=== PATIENT | male | born 1965 | race Caucasian/White ===

== ENCOUNTER → 2016-08-23 | Outpatient (CLI) | payer OTHER ==
--- NOTE | 2016-08-24 20:15 | MR ---
EXAMINATION TYPE: MR chrissine/bhanu wo con DATE OF EXAM: 08/23/2016 8:08 AM COMPARISON: NONE HISTORY: cervicalgia, lumbago CONTRAST: 0 mL intravenous MultiHance. TECHNIQUE: Multiplanar, multisequence images of the lumbar spine were acquired. FINDINGS: Cord terminates at the L1 level. L5-S1: There is left lateral disc bulge. This has exiting nerve root contact. Correlate with left S1 radicular symptoms. No spinal canal stenosis is present. Neural foramen appears narrowed on the left normal on the right. Facets are unremarkable. Disc desiccation is present.. L4-L5: No focal disc herniation or significant disc bulge is evident. No spinal canal stenosis. No foraminal stenosis. Mild disc desiccation is present.. L3-L4: Broad-based disc bulge is present. No spinal canal stenosis or neural foraminal stenosis is pr esent No spinal canal stenosis. No foraminal stenosis. Disc desiccation is present. L2-L3: No significant disc bulge or disc herniation. No spinal canal stenosis. No foraminal stenosi s. Mild disc desiccation is present.. L1-L2: No significant disc bulge or disc herniation. No spinal canal stenosis. No foraminal stenosi s. Neural foramen are patent.. T12-L1: No significant disc bulge or disc herniation. No spinal canal stenosis. No foraminal stenos is. Neural foramen are patent.. IMPRESSION: 1. Left lateral disc bulge L5-S1. Correlate with left S1 radicular symptoms. 2. Minimal disc bulge L3-4 with anterior thecal sac flattening. EXAMINATION TYPE: MR honey/bhanu wo con DATE OF EXAM: 08/23/2016 8:08 AM COMPARISON: NONE HISTORY: cervicalgia, lumbago CONTRAST: Performed utilizing 0 mL intravenous MultiHance gadolinium contrast. TECHNIQUE: Multiplanar multiecho imaging on a 3.0 Marcy magnet is performed through the cervical spin e. FINDINGS: The craniovertebral junction is normal. Vertebral body alignment is normal. C7-T1: There is broad-based central disc bulge with mild anterior thecal sac compression. No cord co ntact is evident.. No spinal canal stenosis or neural foraminal stenosis is present. C6-7: Mild central disc bulge is present with anterior thecal sac compression. No cord contact is martha dent. No spinal canal stenosis or neural foraminal stenosis is present. C5-6: Central disc bulge is present with mild anterior thecal sac compression. There is increased sig nal on T2-weighted sequences suggesting an annular tear. No spinal canal stenosis or neural foraminal stenosis present. No cord deformity is present.. C4-5: No focal disc herniation or significant disc bulge is evident. No spinal canal stenosis or yamila ral foraminal stenosis is present.Uncovertebral joint hypertrophy is present with moderate bilateral foraminal narrowing C3-4: Mild disc bulge has anterior thecal sac compression. No spinal canal stenosis present. Left for aminal narrowing is present.. C2-3: Mild left disc bulge is present with mild left paracentral anterior thecal sac compression. No cord contact is evident. No spinal canal stenosis or neural foraminal stenosis is present. IMPRESSIONS: 1. Disc bulging with mild anterior thecal sac compression present C5-6 C6-7 and C7-T1. 2. Small annular tear may be present C5-6.
== END ==
LOC: RADMRIMAIN 07:19
PROVIDERS: ATTEND Psychiatry & Neurology Neurology
DX: M51.27 Other intervertebral disc displacement, lumbosacral region (principal); M50.222 Other cervical disc displacement at C5-C6 level
CPT/HCPCS: 72141; 72148

== ENCOUNTER 2017-03-15 20:09 | Emergency (ER) | payer OTHER ==
[2017-03-15] MEDS ORDERED: HYDROcodone/APAP 5-325MG 1 EACH TAB PO STA (21:23)
--- NOTE | 2017-03-15 23:15 | CT ---
History: Reason: Pain Exam: CT HEAD Without Contrast axial noncontrast images through the brain with multiplanar reformatted images Technique more: CTDI is 60.30 mGy and DLP is 1217.10 mGy-cm. Technique more: This CT exam was performed using one or more of the following dose reduction techniques: automated exposure control, adjustment of the mA and/or kV according to patient size, and/or use of iterative reconstruction technique. Comparison: None available FINDINGS: No intracranial hemorrhage, mass effect or CT evidence of acute infarct. The jose-white differentiation appears preserved. The ventricles are within limits and midline. Mild mucosal thickening left ethmoid air cells. The mastoid and orbits appear within limits. Posterior scalp soft tissue injury, possible aspiration. No calvarial fracture. IMPRESSION: No intracranial hemorrhage, mass effect or CT evidence of acute infarct. Posterior scalp soft tissue injury, possible aspiration. No calvarial fracture. Exam: CT C SPINE Without Contrast axial noncontrast images through the cervical spine with multiplanar reformatted images Technique more: CTDI is 20.10 mGy and DLP is 410.70 mGy-cm. Technique more: This CT exam was performed using one or more of the following dose reduction techniques: automated exposure control, adjustment of the mA and/or kV according to patient size, and/or use of iterative reconstruction technique. Comparison: None available FINDINGS: No fracture or malalignment. Straightening may represent position or spasm. No evidence of prevertebral swelling. Multilevel spondylosis/discogenic change. Bilateral C4-5 foraminal stenosis and left-sided C3-4 foraminal stenosis. Visualized lung apices are clear. IMPRESSION: No fracture or malalignment. Straightening may represent position or spasm. No evidence of prevertebral swelling. Multilevel spondylosis/discogenic change. Bilateral C4-5 foraminal stenosis and left-sided C3-4 foraminal stenosis.
--- NOTE | 2017-03-15 23:48 | ED ---
Fall HPI - General Chief Complaint: Fall Stated Complaint: Fall. 7 feet Time Seen by Provider: 03/15/17 20:42 Source: patient Mode of arrival: ambulatory - History of Present Illness Initial Comments: 52-year-old male patient presents to the emergency department today for evaluation after falling from a ladder. Patient states that his feet were 3 feet off the ground up a ladder when he fell backwards striking his head on cement. He states that follow occurred approximately 30 minutes prior to arrival. Patient states he is unsure whether or not he passed out. states that he was somewhat dazed and unable to ablate after the fall. She was eventually able to get him up into the car and brought him here for evaluation. Currently patient is resting in bed and is able to answer questions without difficulty. He is complaining of a headache and pain to the posterior scalp. He denies any blurred or double vision. Denies any nausea or vomiting. Denies any neck or back pain. He is complaining of some minor right elbow discomfort. He denies any difficulty with range of motion, numbness, or tingling to the arm. Patient denies any chest pain, shortness of breath, dizziness, weakness, abdominal pain, or difficulties with bowel movements or urination. - Related Data Home Medications Medication Instructions Recorded Confirmed Calcium Carbonate [Calcium] 600 mg PO DAILY 03/15/17 03/15/17 Levothyroxine Sodium [Synthroid] 75 mcg PO DAILY 03/15/17 03/15/17 Multivitamins, Thera [Multivitamin 1 tab PO DAILY 03/15/17 03/15/17 (formulary)] Vit C/E/Zn/Coppr/Lutein/Zeaxan 1 cap PO BID 03/15/17 03/15/17 [Preservision Areds 2 Softgel] Previous Rx's Medication Instructions Recorded Amoxic-Pot Clav 875-125Mg 1 tab PO Q12HR #20 tablet 03/15/17 [Augmentin 875-125] Allergies Allergy/AdvReac Type Severity Reaction Status Date / Time No Known Allergies Allergy Verified 03/15/17 20:59 Review of Systems ROS Statement: Those systems with pertinent positive or pertinent negative responses have been documented in the HPI. ROS Other: All systems not noted in ROS Statement are negative. Past Medical History Past Medical History: GERD/Reflux, Thyroid Disorder History of Any Multi-Drug Resistant Organisms: None Reported Past Surgical History: Orthopedic Surgery Additional Past Surgical History / Comment(s): rt wrist sx. bilat rotator cuff sx. colonoscopy Past Anesthesia/Blood Transfusion Reactions: Motion Sickness Past Psychological History: No Psychological Hx Reported Smoking Status: Never smoker Past Alcohol Use History: Occasional Past Drug Use History: None Reported - Past Family History Brother(s) Family Medical History: Deep Vein Thrombosis (DVT) General Exam Limitations: no limitations General appearance: alert, in no apparent distress, other (This is a well- developed, well-nourished adult male patient in no acute distress. Vital signs upon presentation are temperature 98.8F, pulse 85, respirations 20, blood pressure 198/91, pulse ox 97% on room air.) Head exam: Present: normocephalic, other (Patient has a 0.5 cm laceration to the central posterior scalp.) Eye exam: Present: normal appearance, PERRL, EOMI. Absent: scleral icterus, conjunctival injection, nystagmus, periorbital swelling ENT exam: Present: normal exam, normal oropharynx, mucous membranes moist, TM's normal bilaterally Neck exam: Present: normal inspection. Absent: tenderness, meningismus, full ROM (C-collar in place upon examination), lymphadenopathy Respiratory exam: Present: normal lung sounds bilaterally. Absent: respiratory distress, wheezes, rales, rhonchi, stridor Cardiovascular Exam: Present: regular rate, normal rhythm, normal heart sounds. Absent: systolic murmur, diastolic murmur, rubs, gallop, clicks GI/Abdominal exam: Present: soft, normal bowel sounds. Absent: distended, tenderness, guarding, rebound, rigid Extremities exam: Present: full ROM, normal capillary refill, other (Does have an abrasion to the right posterior upper arm. She has full range of motion to the right elbow. Skin is otherwise pink, warm, and dry with cap refill less than 3 seconds. We'll pulses 2+ and equal bilaterally. Patient has no point tenderness to the medial or lateral epicondyles or the olecranon process. He has full range of motion of the elbow without pain or limitation. Patient has no hip tenderness or pain with compression of the pelvis.). Absent: tenderness , pedal edema, joint swelling, calf tenderness Back exam: Present: normal inspection, other (Nontender, no step-off, no deformity to firm midline palpation of the thoracic and lumbar vertebrae. Full range of motion without pain or limitation.). Absent: tenderness, vertebral tenderness Neurological exam: Present: alert, oriented X3, CN II-XII intact, other (Patient 's speech is fluid, he is alert and acutely responsive.) Psychiatric exam: Present: normal affect, normal mood Skin exam: Present: warm, dry, intact, normal color. Absent: rash Course Vital Signs 03/15/17 03/16/17 20:25 00:12 Temperature 98.8 F 98.1 F Pulse Rate 85 77 Respiratory 20 19 Rate Blood Pressure 198/91 136/82 O2 Sat by Pulse 97 97 Oximetry Medical Decision Making - Medical Decision Making 52-year-old male patient presented for evaluation after falling from a ladder and striking his head on the ground. Physical examination did reveal 0.5 cm laceration to the posterior scalp. CT of the brain and C-spine was obtained and showed no acute abnormalities. When c-collar was removed patient did have full range of motion without pain or limitation to the neck. Laceration was small, bleeding controlled, and did not require repair. Patient was neurologically intact during stay. Headache did improve with medication given here in the department. Patient will be discharged home today with instructions to follow-up with his primary care physician for recheck in 1-2 days. Incidental finding of the CT of the brain did show mucosal thickening in the ethmoid air cells, patient did report frontal headaches for the last 2 weeks. We will treat him for acute sinusitis with Augmentin. He is instructed to return here immediately for any worsening signs or symptoms of head injury, patient was educated regarding this. He is instructed to return here for any other new, worsening, or concerning symptoms. He verbalizes understanding and agrees with this plan. - Radiology Data Radiology results: report reviewed, image reviewed CT of the head without contrast, report was read in its entirety, impression by Dr. Chowdhury shows no acute intracranial hemorrhage, mass effect, or CT evidence of acute infarct. Posterior scalp soft tissue injury, possible laceration. No calvarial fracture. CT of the cervical spine report reviewed in its entirety, impression by Dr. Chowdhury shows no fracture or malalignment. Straightening may represent position or spasm. No evidence of prevertebral swelling. Multilevel spondylosis/discogenic change. Bilateral C4 to 5 for animal stenosis with left- sided C3 to 4 foraminal stenosis. Disposition Clinical Impression: Head injury, Concussion, Contusion of right elbow, Ethmoid sinusitis Disposition: HOME SELF-CARE Condition: Good Instructions: Laceration (ED), Head Injury (ED) Additional Instructions: Monitor for signs or symptoms of worsening head injury as discussed. Keep wound clean and dry. Monitor for signs or symptoms of infection including but not limited to redness, swelling, drainage of pus, fever, or chills. Follow-up with the primary care physician for recheck in 1-2 days. Return here immediately for any new, worsening, or concerning symptoms. Prescriptions: Amoxic-Pot Clav 875-125Mg [Augmentin 875-125] 1 tab PO Q12HR #20 tablet Referrals: Murphy Phelps DO [Primary Care Provider] - 1-2 days Time of Disposition: 23:48
[2017-03-16 00:13] VITALS: BP 136/82; PULSE 77; RESP 19; TEMP 98.1
== END 2017-03-16 00:13 | disposition home or self-care (01) ==
LOC: EC 20:09
DX: S06.0X0A Concussion without loss of consciousness, initial encounter (principal); S01.01XA Laceration without foreign body of scalp, initial encounter; S50.01XA Contusion of right elbow, initial encounter; J01.20 Acute ethmoidal sinusitis, unspecified; E07.9 Disorder of thyroid, unspecified; Y92.89 Other specified places as the place of occurrence of the external cause
CPT/HCPCS: 70450; 72125; 99284

== ENCOUNTER → 2018-09-30 | Outpatient (CLI) | payer OTHER ==
--- NOTE | 2018-09-30 13:12 | CONS ---
CONSULTATION DATE OF SERVICE: 09/30/2018 A 53-year-old gentleman who has been evaluated in the Sleep Center for possible obstructive sleep apnea-hypopnea syndrome. HISTORY OF PRESENT ILLNESS/SLEEP-WAKE EVALUATION: During the working days, patient usually goes to bed around 9:30 p.m. and then he wakes up around 4:30 am. Sometimes he is able to fall asleep after this awakening, sometimes not, but he is normally waking up on working days 4:30 am. On working days, he Dysuria is [id number] weight so his normal waking up on working days for 30 a.m. On weekend, he usually goes to bed around 11 pm. sleeps until 3 am, wakes up and then again sometimes falling asleep out and sometimes not, and his awakening time ended on weekends about 7:00 am he does snore at night. According to , he may have episodes of snorting and choking during the sleep. He wakes up from sleep about 3 times with up to 2 episodes of nocturia. No history of hypnagogic hallucinations, sleep paralysis or cataplexy. In the morning, patient wakes up tired falling asleep during the day, has problems with memory, concentration, anxiety [place] Sleepiness Scale increased to 15. PAST MEDICAL HISTORY: 1. Positive for hypothyroidism, low level of testosterone. SURGICAL HISTORY: Right wrist surgery 2003, left shoulder 2007, right shoulder 2011. MEDICATIONS: Levothyroxine, testosterone, melatonin on occasional basis at 8:30 pm. SOCIAL HISTORY: Negative for smoking. Alcohol consumption up to 3-4 glasses per week. FAMILY HISTORY: Hypertension, heart problems, emphysema, snoring, thyroid problems. REVIEW OF SYSTEMS: Awakenings from sleep, tiredness and sleepiness during the day. PHYSICAL EXAM: gentleman without distress. BP 126/78, HR 68, RR 16, height 70.5 inches, weight 199 pounds. Body mass index 27.4, temperature 97.7, oxygen saturation 95%. OROPHARYNX: Low position of soft palate. Mallampati 3. Wide pillars. NECK: Wide neck 16-1/4 inch in circumference, restriction of nasal breathing on the right side. LUNGS Clear to percussion and to auscultation. Good air exchange. No wheezing or rhonchi. HEART S1, S2 regular. No murmurs, gallops, or rubs. ABDOMEN Soft and nontender. Bowel sounds are present. No organomegaly appreciated. EXTREMITIES No clubbing or cyanosis. GRAVITY METER OBSERVER Awake, alert, and oriented X3. Cranial nerves 2 to 7 intact. There is no fasciculation or atrophy. noted. No focal deficits observed. IMPRESSION: 1. Snoring, witnessed episodes of choking and snorting during the sleep. Awakenings from sleep with dry mouth and nocturia. Low position of soft palate. Restriction of nasal breathing. Wide neck, sleepiness, obstructive sleep apnea-hypopnea syndrome. 2. Sleepiness, Keene Sleepiness Scale significantly increased to 15. Patient feels tired and sleepy during the day, but usually does not take any naps. 3. Awakenings at 3 am with difficulties to fall asleep again. 4. Hypothyroidism. 5. Low level of testosterone while on testosterone replacement. 6. Status post right knee surgery in 2003. 7. Status post left surgery in 2007. 8. Status post right shoulder surgery surgery 2011. PLAN: 1. Polysomnography for evaluation of patient's breathing during sleep. 2. CPAP/BiPAP titration if sleep study confirms obstructive sleep apnea-hypopnea syndrome. 3. Preferable position during sleep on the side. 4. No driving if patient feels any sleepiness. 5. I will see patient for follow up visit to explain results of testing and following plan. Thank you very much for referring this patient for consultation. Sincerely, Renny Jones MD, PhD, FAASM Diplomat of [place] [employer] [place] [employer] Secondary Set [employer] [facility] [place] MMODL / YOUNGN: [id number] /
== END | disposition home or self-care (01) ==
LOC: SLEEP 11:37
PROVIDERS: ATTEND Internal Medicine
DX: G47.33 Obstructive sleep apnea (adult) (pediatric) (principal); R35.1 Nocturia; E03.9 Hypothyroidism, unspecified; E29.1 Testicular hypofunction; Z79.890 Hormone replacement therapy; Z98.890 Other specified postprocedural states; Z79.899 Other long term (current) drug therapy
CPT/HCPCS: 99211

== ENCOUNTER → 2018-10-28 | Outpatient (CLI) | payer OTHER ==
--- NOTE | 2018-10-28 19:56 | PN ---
PROGRESS NOTE DATE OF SERVICE: 10/29/2018 53-year-old gentleman who has been followed in Sleep Center to discuss results of the sleep study and following plan. I discussed results of sleep study with the patient in detail. No respiratory abnormalities have been documented. Normal oxygenation during the sleep. Patient continued to have symptoms of significant excessive daytime sleepiness. Today his [place] Sleepiness Scale is in extremely high range of 17. MEDICATIONS: Levothyroxine, testosterone, melatonin. PHYSICAL EXAM: Patient in no distress. BP 134/82, HR 79, temp 98.2, oxygen saturation at room air 96%. HEENT PERRLA, EOMI, evaluation of oropharynx showed tongue protrudes midline. Neck Supple, no JVD. Thyroid is not palpable. LUNGS Clear to percussion and to auscultation. Good air exchange. No wheezing or rhonchi. HEART S1, S2 regular. No murmurs, gallops, or rubs. ABDOMEN Soft and nontender. Bowel sounds are present. No organomegaly appreciated. EXTREMITIES No clubbing or cyanosis. BULK SEALER OPERATOR Awake, alert, and oriented X3. Cranial nerves 2 to 7 intact. There is no fasciculation or atrophy. noted. No focal deficits observed. IMPRESSION: 1. No significant respiratory abnormalities during diagnostic polysomnogram. 2. The patient continued to have symptoms of significant excessive daytime sleepiness. [place] Sleepiness Scale is 17. 3. Hypothyroidism. 4. History of low level of testosterone and on replacement. 5. Status post left shoulder surgery. 6. Status post right shoulder surgery. 7. Right wrist surgery in 2003. PLAN: 1. Polysomnogram with the following multiple sleep latency test for objective evaluation patient symptoms of excessive daytime sleepiness. 2. Sleep hygiene with regular time in bed for 8 hours. 3. Precautions related to driving. No driving if feeling sleepiness. Thank you very much for allowing me to participate in management of your patient. Sincerely, Renny Jones MD, PhD, FAASM Diplomat of [place] [employer] [place] [employer] Airline Dispatcher of [facility] [place] MMSLAVAL / PEDRO: [id number] /
== END | disposition home or self-care (01) ==
LOC: SLEEP 16:03
PROVIDERS: ATTEND Internal Medicine
DX: G47.10 Hypersomnia, unspecified (principal); E03.9 Hypothyroidism, unspecified; Z87.438 Personal history of other diseases of male genital organs; Z98.890 Other specified postprocedural states; Z79.899 Other long term (current) drug therapy

== ENCOUNTER 2023-11-25 12:42 | Inpatient (IN) | payer BC, MEDICAID, OTHER ==
--- NOTE | 2023-11-25 13:11 | ED ---
General Adult HPI - General Chief complaint: Psychiatric Symptoms Stated complaint: overdose Time Seen by Provider: 11/25/23 12:47 Source: EMS Mode of arrival: EMS Limitations: no limitations - History of Present Illness Initial comments: Dictation was produced using [employer] dictation software. please excuse any grammatical, word or spelling errors. Chief Complaint: 58-year-old male presents for the emergency department for psychiatric evaluation History of Present Illness: Patient 58-year-old male he has history with psychiatrist. Allegedly he has been made some suicidal comments at his primary care doctor's office. Patient states that he attempted suicide approximately 1 month ago. Patient is very unhappy with his current psychiatrist situation. Patient takes a lot of psychiatric medications. Patient brought in by EMS. The ROS documented in this emergency department record has been reviewed and confirmed by me. Those systems with pertinent positive or negative responses have been documented in the HPI. All other systems are other negative and/or noncontributory. - Related Data Home Medications Medication Instructions Recorded Confirmed Levothyroxine Sodium [Synthroid] 75 mcg PO DAILY 03/15/17 11/25/23 Garlic Extract [Garlic] 400 mg PO HS 11/25/23 11/25/23 Ginseng 100 mg PO HS 11/25/23 11/25/23 Sertraline [Zoloft] 50 mg PO DAILY 11/25/23 11/25/23 Valsartan [Diovan] 80 mg PO HS 11/25/23 11/25/23 clonazePAM [KlonoPIN] 1 mg PO HS 11/25/23 11/25/23 traZODone HCL [Desyrel] 25 mg PO HS 11/25/23 11/25/23 Allergies Allergy/AdvReac Type Severity Reaction Status Date / Time sertraline [From Zoloft] AdvReac see comment Verified 11/25/23 15:47 Review of Systems ROS Statement: Those systems with pertinent positive or pertinent negative responses have been documented in the HPI. ROS Other: All systems not noted in ROS Statement are negative. Past Medical History Past Medical History: GERD/Reflux, Thyroid Disorder History of Any Multi-Drug Resistant Organisms: None Reported Past Surgical History: Orthopedic Surgery Additional Past Surgical History / Comment(s): rt wrist sx. bilat rotator cuff sx. colonoscopy Past Anesthesia/Blood Transfusion Reactions: Motion Sickness Past Psychological History: No Psychological Hx Reported Smoking Status: Unknown if ever smoked Past Alcohol Use History: Occasional Past Drug Use History: None Reported - Past Family History Brother(s) Family Medical History: Deep Vein Thrombosis (DVT) Mother Family Medical History: COPD General Exam - General Exam Comments Initial Comments: General: Well-appearing, nontoxic, no acute distress. Head: Normocephalic, atraumatic Eyes: PERRLA, EOMI ENT: Airway patent Chest: Nonlabored breathing Skin: No visual rash, normal skin tone Neuro: Alert and oriented 3 Musculoskeletal: No gross abnormalities Psych: Hyperverbal, tangential speech Limitations: no limitations Course Vital Signs 11/25/23 11/25/23 12:43 18:00 Temperature 98 F 97.7 F Pulse Rate 77 74 Respiratory 18 18 Rate Blood Pressure 150/78 148/64 O2 Sat by Pulse 96 97 Oximetry Medical Decision Making - Medical Decision Making Was pt. sent in by a medical professional or institution (, PA, CRIME SCENE EVIDENCE TECHNICIAN, urgent care, hospital, or custodial...) When possible be specific @ -No Did you speak to anyone other than the patient for history (EMS, parent, family, police, friend...)? What history was obtained from this source @ -EMS states that patient was brought here from PCPs office for psychiatric evaluation Did you review nursing and triage notes (agree or disagree)? Why? @ -I reviewed and agree with nursing and triage notes Were old charts reviewed (outside hosp., previous admission, EMS record, old EKG, old radiological studies, urgent care reports/EKG's, custodial records)? Report findings @ -No old charts were reviewed Differential Diagnosis (chest pain, altered mental status, abdominal pain women, abdominal pain men, vaginal bleeding, musculoskeletal, weakness, fever, dyspnea, syncope, headache, dizziness, GI bleed, back pain, seizure, CVA, palpatations, mental health)? @ -Differential Mental Health: Depression, anxiety, bipolar, psychosis, schizophrenia, borderline personality, situational depression, adjustment disorder, behavioral disorder, brain tumor, malingering, substance abuse, encephalopathy, medication reaction, dementia, hypothyroidism, degenerative neurologic disorder, lupus.... This is not meant to be all-inclusive list EKG interpreted by me (3pts min.). @ -None done X-rays interpreted by me (1pt min.). @ -None done CT interpreted by me (1pt min.). @ -None done U/S interpreted by me (1pt. min.). @ -None done What testing was considered but not performed or refused? (CT, X-rays, U/S, labs)? Why? @ -None What meds were considered but not given or refused? Why? @ -None Was smoking cessation discussed for >3mins.? @ -No Were there social determinants of health that impacted care today? How? (Homelessness, low income, unemployed, alcoholism, drug addiction, transportation, low edu. Level, literacy, decrease access to med. care, fdc, rehab)? @ -No Was there de-escalation of care discussed even if they declined (Discuss DNR or withdrawal of care, Hospice)? DNR status @ -No What co-morbidities impacted this encounter? (DM, HTN, Smoking, COPD, CAD, Cancer, CVA, ARF, Chemo, Hep., AIDS, mental health diagnosis, sleep apnea, morbid obesity)? @ -None Was patient admitted / discharged? Hospital course, mention meds given and route, prescriptions, significant lab abnormalities, going to OR and other pertinent info. @ -58-year-old male presents emergency department for psychiatric evaluation. Patient presents with symptoms of acute psychosis. Vital signs stable. Physical examination is otherwise benign. Patient medically cleared for EPS evaluation. Patient admitted to mental health unit Did you discuss the management of the patient with other professionals (professionals i.e. , PA, CRIME SCENE EVIDENCE TECHNICIAN, lab, RT, psych nurse, licensed social worker, review assistant, teacher, returning officer, home health care case manager)? Give summary @ -No Was critical care preformed (if so, how long)? @ -No Undiagnosed new problem with uncertain prognosis? @ -No Drug Therapy requiring intensive monitoring for toxicity (Heparin, Nitro, Insulin, Cardizem)? @ -No Were any procedures done? @ -No Diagnosis/symptom? Acute, or Chronic, or Acute on Chronic? Uncomplicated (without systemic symptoms) or Complicated (systemic symptoms)? @ -Acute psychosis Side effects of treatment? @ -No Exacerbation, Progression, or Severe Exacerbation? @ -No Poses a threat to life or bodily function? How? (Chest pain, USA, VA, pneumonia, PE, COPD, DKA, ARF, appy, cholecystitis, CVA, Diverticulitis, Homicidal, Suicidal, threat to staff... and all critical care pts) @ -Yes - Lab Data Lab Results 11/25/23 11/25/23 11/25/23 Range/Units 13:16 13:16 17:35 Urine Color Colorless Urine Appearance Clear (Clear) Urine pH 5.5 (5.0-8.0) Ur Specific [place] 1.019 (1.001-1.035) Urine Protein Negative (Negative) Urine Glucose (UA) Negative (Negative) Urine Ketones Negative (Negative) Urine Blood Small H (Negative) Urine Nitrite Negative (Negative) Urine Bilirubin Negative (Negative) Urine Urobilinogen <2.0 (<2.0) mg/dL Ur Leukocyte Esterase Negative (Negative) Urine RBC 2 (0-5) /hpf Urine WBC <1 (0-5) /hpf Calcium Oxalate Crystal Rare H (None) /hpf Urine Mucus Rare H (None) /hpf Urine Opiates Screen Not Detected (NotDetected) Ur Oxycodone Screen Not Detected (NotDetected) Urine Methadone Screen Not Detected (NotDetected) Ur Barbiturates Screen Not Detected (NotDetected) U Tricyclic Antidepress Not Detected (NotDetected) Ur Phencyclidine Scrn Not Detected (NotDetected) Ur Amphetamines Screen Not Detected (NotDetected) U Methamphetamines Scrn Not Detected (NotDetected) U Benzodiazepines Scrn Detected H (NotDetected) Urine Cocaine Screen Not Detected (NotDetected) U Marijuana (THC) Screen Not Detected (NotDetected) SARS-CoV-2 (PCR) Not Detected (Not Detectd) Disposition Clinical Impression: Suicidal ideation Disposition: ADMITTED IP TO THIS HOSP Condition: Good
[2023-11-25 13:50] LABS: Amphetamine Screen,Urine Not Detected (NotDetected); Barbiturate Screen,Urine Not Detected (NotDetected); Benzodiazepines Screen,Urine Detected (NotDetected); Cocaine Screen,Urine Not Detected (NotDetected); Methadone Screen, Urine Not Detected (NotDetected); Opiate Screen,Urine Not Detected (NotDetected); Oxycodone Screen, Urine Not Detected (NotDetected); Phencyclidine Screen,Urine Not Detected (NotDetected); Tricyclic Antidepressant,Urine Not Detected (NotDetected); Urn Cannabinoid Scrn Not Detected (NotDetected)
[2023-11-25] MEDS: OLANZapine 5 MG TAB PO ONE (18:15)
[2023-11-25] MEDS ORDERED: HALOPERIDOL LACTATE 5 MG/ML 1 ML VIAL IM PRN (21:19)
[2023-11-25] MEDS ORDERED: haloperidoL 5 MG TAB PO PRN (21:19)
[2023-11-25] MEDS ORDERED: LORazepam 2 MG/ML INJ IM PRN (21:19)
[2023-11-25] MEDS ORDERED: MAG HYDROX/AL HYDROX/SIMETH 355 ML BOTTLE PO PRN (21:19)
[2023-11-25] MEDS: clonazePAM 1 MG TAB PO SCH (23:35)
[2023-11-25] MEDS: VALSARTAN 80 MG TAB PO SCH (23:35)
[2023-11-25] MEDS: traZODone HCL 50 MG TAB PO SCH (23:36)
[2023-11-26] MEDS: NICOTINE 14MG/24HR PATCH TRANSDERM SCH
[2023-11-26] MEDS: LEVOTHYROXINE 75 MCG TAB PO SCH (06:36)
[2023-11-26 06:42] LABS: Appearance,Urine Clear (Clear); Bilirubin,Urine Negative (Negative); Blood,Urine Small (Negative); Calcium Oxalate Crystals,Urine Rare /hpf; Color,Urine Colorless; Glucose,Urine (UA) Negative (Negative); Ketones,Urine Negative (Negative); Leukocyte Esterase,Urine Negative (Negative); Mucus,Urine Rare /hpf; Nitrite,Urine Negative (Negative); PH, Urine 5.5 (5.0-8.0); Protein,Urine Negative (Negative); RBC,Urine 2 /hpf (0-5); Specific Gravity,Urine 1.019 (1.001-1.035); Urobilinogen,Urine <2.0 mg/dL (<2.0); WBC,Urine <1 /hpf (0-5)
[2023-11-26] MEDS: SERTRALINE 50 MG TAB PO SCH (09:17)
--- NOTE | 2023-11-26 10:33 | P.HP ---
Psychiatric H&P - . H&P Date: 11/26/23 History & Physical: Allergies Allergy/AdvReac Type Severity Reaction Status Date / Time sertraline [From Zoloft] AdvReac see comment Verified 11/25/23 15:47 Vital Signs Temp 97.7 F 11/26/23 06:48 Pulse 63 11/26/23 06:48 Resp 16 11/26/23 06:48 BP 105/62 11/26/23 06:48 Pulse Ox 99 11/25/23 23:25 FiO2 Intake & Output 11/25/23 11/26/23 11/26/23 18:59 06:59 18:59 Weight 81.647 kg 75.977 kg Laboratory Last Values Urine Color Colorless 11/25/23 13:16 Urine Appearance Clear (Clear) 11/25/23 13:16 Urine pH 5.5 (5.0-8.0) 11/25/23 13:16 Ur Specific [place] 1.019 (1.001-1.035) 11/25/23 13:16 Urine Protein Negative (Negative) 11/25/23 13:16 Urine Glucose (UA) Negative (Negative) 11/25/23 13:16 Urine Ketones Negative (Negative) 11/25/23 13:16 Urine Blood Small (Negative) H 11/25/23 13:16 Urine Nitrite Negative (Negative) 11/25/23 13:16 Urine Bilirubin Negative (Negative) 11/25/23 13:16 Urine Urobilinogen <2.0 mg/dL (<2.0) 11/25/23 13:16 Ur Leukocyte Esterase Negative (Negative) 11/25/23 13:16 Urine RBC 2 /hpf (0-5) 11/25/23 13:16 Urine WBC <1 /hpf (0-5) 11/25/23 13:16 Calcium Oxalate Crystal Rare /hpf (None) H 11/25/23 13:16 Urine Mucus Rare /hpf (None) H 11/25/23 13:16 Urine Opiates Screen Not Detected (NotDetected) 11/25/23 13:16 Ur Oxycodone Screen Not Detected (NotDetected) 11/25/23 13:16 Urine Methadone Screen Not Detected (NotDetected) 11/25/23 13:16 Ur Barbiturates Screen Not Detected (NotDetected) 11/25/23 13:16 U Tricyclic Antidepress Not Detected (NotDetected) 11/25/23 13:16 Ur Phencyclidine Scrn Not Detected (NotDetected) 11/25/23 13:16 Ur Amphetamines Screen Not Detected (NotDetected) 11/25/23 13:16 U Methamphetamines Scrn Not Detected (NotDetected) 11/25/23 13:16 U Benzodiazepines Scrn Detected (NotDetected) H 11/25/23 13:16 Urine Cocaine Screen Not Detected (NotDetected) 11/25/23 13:16 U Marijuana (THC) Screen Not Detected (NotDetected) 11/25/23 13:16 SARS-CoV-2 (PCR) Not Detected (Not Detectd) 11/25/23 17:35 11/26/23 10:32 Psychiatric Evaluation Identifying Data: Mr. Barrios is 58 years old, , white male, who lives in [place], [place] with his . Chief Complaint: Anxiety. History of Psychiatric Illness- The patient noted that his anxiety started 2 months ago this time. He has suffered from anxiety all his life. The patient noted that his anxiety got worse due to side effects of anxiety, also it was not working. His anxiety symptoms of inability to focus, nervousness, distractibility, doing multiple projects, inability to finish projects, inability to sleep at night, tremulousness, not feeling myself. He also felt depressed along with anxiety. His depressive symptomatology consisted of crying spells, sadness, loss of appetite, guilt feeling, feeling worthless, hopeless, felt burden to the family, and thought that, I would be better off . He did not have active thoughts of suicide or plans. The patient noted that he has felt presence of God. He feels that he has been forgiven. He further mentioned that he walked in to the [place] and saw lightening bolts all around him. He was camping by himself. The patient went on Facebook but he did not know that he had signed up for it. He posted a lot about nature, his picture with God in everything. He stated that he became friends with the females on Facebook. He thinks they like him but he feels guilty about this because he is man. He went to his primary care physician for a referral but the PCP asked him to go to ER. The patient came to ER and told them that he attempted suicide a month ago by taking Xanax, Muscle relaxant, Trazodone, Kratom and Klonopin. The patient first sought psychiatric treatment in 2005 after his brother . He went for out-pt treatment. He was prescribed other medications but he does not remember the medications. He continued treatment for one and half year and then stopped. He has had out-pt treatment off and on since. He resumed treatment 4-[address] Gebrer. He has been prescribed Prozac since then. He has never had in-pt psychiatric treatment in the past. The patient noted that one time he thought of running his car in to a pole but did not do it. He has no other history of SI or HI in the past. Past Psychiatric History: As stated above. Past Medication History: As stated above. Leading questions: The patient admitted to Depression, Anxiety and being hyper talkative. Denied SI or HI. Denied symptoms consistent with psychosis Drugs and alcohol history: Cocaine abuse for 3-4 years around age early 20s. Alcohol abuse 10 years from early 20s to early 30s. He denied abuse of any other drugs. Marijuana makes him paranoid. Tobacco use: None Past Medical history: HTN Family History of Psychiatric Disorder: Three sister have a diagnosis of Bipolar disorder. No h/o suicide or homicide. Social History and Family History: The patient was born and raised in [place], [place]. He grew-up with 3 brothers and three sisters. He finished [employer]. He has associates degree in Business. He has been for 31 years. He has two children. His longest job 26 years for [employer]. OTC: Garlic, Vitamins Ginseng Allergies: None as per patient. Objective: MSE: Alert and attentive. Orientation times three Dressed and Groomed: Appropriately. Pleasant and cooperative. Psychomotor Activity: Normal. Speech: Normal in tone, quality, and hyperverbal Mood: Anxious and depressed Affect: Labile SI or HI: None. Perceptual disturbance: None. Thought Content: Worship preoccupation Thought Process: Normal. Cognition: Intact Judgment and Insight: Good AIMS: Normal Labs: Available labs reviewed. Diagnosis: Bipolar II- mixed phase Plan and Recommendations: Continue current Medications. Abilify 5 mg po HS. b Monitor MS and side effects of medications and adjust medications accordingly. Provide supportive psychotherapy and psychoeducation. The patient provided psychoeducation. Te patient provided with substance abuse counselling and advised to attend AA/NA Smoke cessation therapy. The patient to attend [facility]. CBC with Diff, CMP, TSH, Lipid Profile, HbA1c, EKG, Medication Consent with explanation of risk/benefits and side effects: Explained and obtained.
--- NOTE | 2023-11-26 15:09 | P.CONS ---
History of Present Illness - Reason for Consult Consult date: 11/26/23 Medical management Requesting physician: Alcides Gr - Chief Complaint Anxious - History of Present Illness This is a 58-year-old patient, being followed by Dr. Phelps. Takes medication for hypothyroid, hypertension, also anxiety depression. Patient made some suicidal comments at his primary doctor's office and apparently had attempted suicide about a month ago. He was sent down by the EMS. Per the EMS report patient came to the doctor's office meeting acting manic making suicidal remarks at times. He had been apparently lowering his medications dose on his own. And patient is willing to go to the hospital. Patient has not been sleeping well. Last 6 months has lost about 52 pounds. He does have a lot of hiking with backpack. Anxious depressed. Also having tremors. Nurse informed me afterward patient does takeKratum. Sitting at the edge of the bed. Patient does state he has some scratches on his body especially the limbs from hiking Review of systems: GEN.: Decreased sleep. Weight loss EYES: None HEENT: None NECK: None RESPIRATORY: None CARDIOVASCULAR: None GASTROINTESTINAL: None GENITOURINARY: None MUSCULOSKELETAL: None LYMPHATICS: None HEMATOLOGICAL: None PSYCHIATRY: Anxious and depressed NEUROLOGICAL: Tremors Social history: Does not smoke. Stopping alcohol 28 years ago. Stop doing cocaine over 35 years ago. 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 Lives with family Physical examination: VITAL SIGNS: 97.7, 63, 16, 105/62, 99% room air GENERAL: BMI 23.4,. Sitting edge of the bed, very anxious appearing EYES: Pupils equal. Conjunctiva antwon l. HEENT: External appearance of nose and ears normal, oral cavity grossly normal. NECK: JVD not raised; masses not palpable. HEART: First and second heart sounds are normal; no edema. LUNGS: Respiratory rate normal; clear to auscultation. ABDOMEN: Soft, nontender, liver spleen not palpable, no masses palpable. PSYCH: [Alert and oriented x3; mood and affect anxious l. MUSCULOSKELETAL:No Clubbing/cyanosis;muscles-grossly intact NEUROLOGICAL: Cranial nerves grossly intact; no facial asymmetry, power and sensation grossly intact. Tremors LYMPHATICS: No lymph nodes palpable in the axilla and neck INVESTIGATIONS, reviewed in the clinical context: UA small blood. Calcium oxalate crystals. Rare Urine drug screen benzodiazepine COVID-19 not detected Assessment plan: -Essential hypertension Diovan 80 mg nightly -Hypothyroid, patient on Synthroid 75 mcg. Patient may being over replaced. Patient is physically very active. Has lost 52 pounds. Will check patient's TSH and free T4. In the morning. -Insomnia, multifactorial contribution of possible over replaced with thyroid and severe anxiety -Bipolar 2 mixed phase Medications per psychiatry Care was discussed with the patient. Questions answered Thank you Dr. Gr Past Medical History Past Medical History: GERD/Reflux, Hypertension, Thyroid Disorder History of Any Multi-Drug Resistant Organisms: None Reported Past Surgical History: Orthopedic Surgery Additional Past Surgical History / Comment(s): rt wrist sx. bilat rotator cuff sx. colonoscopy Past Anesthesia/Blood Transfusion Reactions: Motion Sickness Smoking Status: Never smoker - Past Family History Brother(s) Family Medical History: Deep Vein Thrombosis (DVT) Mother Family Medical History: COPD Medications and Allergies Home Medications Medication Instructions Recorded Confirmed Type Levothyroxine Sodium [Synthroid] 75 mcg PO DAILY 03/15/17 11/25/23 History Garlic Extract [Garlic] 400 mg PO HS 11/25/23 11/25/23 History Ginseng 100 mg PO HS 11/25/23 11/25/23 History Sertraline [Zoloft] 50 mg PO DAILY 11/25/23 11/25/23 History Valsartan [Diovan] 80 mg PO HS 11/25/23 11/25/23 History clonazePAM [KlonoPIN] 1 mg PO HS 11/25/23 11/25/23 History traZODone HCL [Desyrel] 25 mg PO HS 11/25/23 11/25/23 History Allergies Allergy/AdvReac Type Severity Reaction Status Date / Time sertraline [From Zoloft] AdvReac see comment Verified 11/25/23 15:47 Physical Exam Vitals: Vital Signs Temp Pulse Pulse Resp BP BP Pulse Ox 11/26/23 06:48 97.7 F 63 16 105/62 11/25/23 23:25 98.0 F 72 18 138/83 99 11/25/23 21:51 98.0 F 65 18 152/81 100 11/25/23 18:00 97.7 F 74 18 148/64 97 11/25/23 12:43 98 F 77 18 150/78 96 Intake and Output 11/25/23 11/26/23 11/26/23 22:59 06:59 14:59 Other: Weight 75.977 kg Results Labs: Abnormal Lab Results - Last 24 Hours (Table) 11/25/23 11/25/23 Range/Units 13:16 13:16 Urine Blood Small H (Negative) Calcium Oxalate Crystal Rare H (None) /hpf Urine Mucus Rare H (None) /hpf U Benzodiazepines Scrn Detected H (NotDetected)
[2023-11-26 16:32] VITALS: BMI 23.3
[2023-11-26] MEDS: LORazepam 1 MG TAB PO PRN (18:23)
[2023-11-26] MEDS: VALSARTAN 80 MG TAB PO SCH (21:05)
[2023-11-27] MEDS: IBUPROFEN 600 MG TAB PO PRN (03:01)
[2023-11-27 08:00] LABS: Basophils % (A) 0 %; Eosinophils # (A) 0.1 k/uL (0-0.7); Eosinophils % (A) 2 %; HCT 41.9 % (39.0-53.0); HGB 13.8 gm/dL (13.0-17.5); Lymphocytes # (A) 1.4 k/uL (1.0-4.8); Lymphocytes % (A) 25 %; MCHC 32.9 g/dL (31.0-37.0); MCV 91.2 fL (80.0-100.0); Mean Platelet Volume 6.5; Monocytes # (A) 0.3 k/uL (0-1.0); Monocytes % (A) 6 %; Neutrophils # (A) 3.9 k/uL (1.3-7.7); Neutrophils % (A) 67 %; Platelet Count 246 k/uL (150-450); RDW 13.3 % (11.5-15.5); WBC 5.8 k/uL (3.8-10.6)
[2023-11-27 08:35] LABS: ALT 18 U/L (4-49); AST 28 U/L (17-59); African American GFR (CKD) >90 (>60 ml/min/1.73 sqM); Albumin 3.6 g/dL (3.5-5.0); Alkaline Phosphatase 56 U/L (38-126); Anion Gap 3 mmol/L; Bilirubin, Delta 0.2 mg/dL (0.0-0.2); Bilirubin,Unconjugated 0.3 mg/dL (0.0-1.1); Blood Urea Nitrogen 16 mg/dL (9-20); Calcium 9.2 mg/dL (8.4-10.2); Carbon Dioxide 29 mmol/L (22-30); Chloride 107 mmol/L (98-107); Glucose 88 mg/dL (74-99); Non-African American GFR(CKD) 87 (>60 ml/min/1.73 sqM); Potassium 4.3 mmol/L (3.5-5.1); Sodium 139 mmol/L (137-145); Total Bilirubin 0.5 mg/dL (0.2-1.3); Total Protein 6.1 g/dL (6.3-8.2)
[2023-11-27] MEDS: ARIPiprazole 5 MG TAB PO SCH (10:00)
[2023-11-27 15:32] LABS: Chol/HDL Ratio 3.33 Ratio; LDL Cholesterol,Calculated 103.2 mg/dL (0.0-131.0)
--- NOTE | 2023-11-27 19:11 | P.PN ---
Progress Note - Text Progress Note Date: 11/27/23 - Chief Complaint Anxious - History of Present Illness This is a 58-year-old patient, being followed by Dr. Phelps. Takes medication for hypothyroid, hypertension, also anxiety depression. Patient made some suicidal comments at his primary doctor's office and apparently had attempted suicide about a month ago. He was sent down by the EMS. Per the EMS report patient came to the doctor's office meeting acting manic making suicidal remarks at times. He had been apparently lowering his medications dose on his own. And patient is willing to go to the hospital. Patient has not been sleeping well. Last 6 months has lost about 52 pounds. He does have a lot of hiking with backpack. Anxious depressed. Also having tremors. Nurse informed me afterward patient does takeKratum. Sitting at the edge of the bed. Patient does state he has some scratches on his body especially the limbs from hiking November 26: Patient feeling better. Less jittery. Less anxious. He does take kratom, maybe about once a week in place of Xanax. Patient's thyroid levels came back normal. Results discussed with the patient. Sleeping better Active Medications Acetaminophen (Acetaminophen Tab 325 Mg Tab) 650 mg PO Q4HR PRN PRN Reason: Mild Pain (Scale 1 to 3) Al Hydroxide/Mg Hydroxide (Mag Hydrox/Al Hydrox/Simeth 355 Ml Bottle) 30 ml PO Q4HR PRN PRN Reason: GI Upset Aripiprazole (Aripiprazole 5 Mg Tab) 5 mg PO DAILY [facility] Last Admin: 11/27/23 10:00 Dose: 5 mg Clonazepam (Clonazepam 0.5 Mg Tab) 0.5 mg PO [facility] Haloperidol (Haloperidol 5 Mg Tab) 5 mg PO Q6HR PRN PRN Reason: Agitation Haloperidol Lactate (Haloperidol Lactate 5 Mg/Ml 1 Ml Vial) 5 mg IM Q6HR PRN PRN Reason: Severe Agitation Ibuprofen (Ibuprofen 600 Mg Tab) 600 mg PO Q6HR PRN PRN Reason: Moderate Pain (Scale 4 to 6) Last Admin: 11/27/23 03:01 Dose: 600 mg Levothyroxine Sodium (Levothyroxine 75 Mcg Tab) 75 mcg PO DAILY@0630 [facility] Last Admin: 11/27/23 06:11 Dose: 75 mcg Lorazepam (Lorazepam 1 Mg Tab) 1 mg PO Q6HR PRN PRN Reason: Anxiety Last Admin: 11/27/23 03:01 Dose: 1 mg Lorazepam (Lorazepam 2 Mg/Ml Inj) 1 mg IM Q6HR PRN PRN Reason: Severe Agitation Magnesium Hydroxide (Magnesium Hydroxide 2,400 Mg/30 Ml Cup) 2,400 mg PO DAILY PRN PRN Reason: Constipation Trazodone HCl (Trazodone Hcl 50 Mg Tab) 50 mg PO HS [facility] Valsartan (Valsartan 80 Mg Tab) 80 mg PO HS [facility] Last Admin: 11/26/23 21:05 Dose: 80 mg Social history: Does not smoke. Stopping alcohol 28 years ago. Stop doing cocaine over 35 years ago. 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 Lives with family Physical examination: VITAL SIGNS: 97.6, 61, 20, 115/73, 99% room air GENERAL: Comfortable EYES: Pupils equal. Conjunctiva antwon l. HEENT: External appearance of nose and ears normal, oral cavity grossly normal. NECK: JVD not raised; masses not palpable. HEART: First and second heart sounds are normal; no edema. LUNGS: Respiratory rate normal; clear to auscultation. ABDOMEN: Soft, nontender, liver spleen not palpable, no masses palpable. PSYCH: [Alert and oriented x3; mood and affect less anxious INVESTIGATIONS, reviewed in the clinical context: November 26: White count 5.8 hemoglobin 13.8 platelets 246 potassium 4.3 creatinine 0.96 TSH 2.5 LDL 103.2 UA small blood. Calcium oxalate crystals. Rare Urine drug screen benzodiazepine COVID-19 not detected Assessment plan: -Essential hypertension Diovan 80 mg nightly -Hypothyroid, TSH within normal range. On Synthroid -Insomnia, multifactorial contribution of possible over replaced with thyroid and severe anxiety -Bipolar 2 mixed phase Medications per psychiatry Discussed with patient including TSH results Thank you Dr. Gr Past Medical History Past Medical History: GERD/Reflux, Hypertension, Thyroid Disorder History of Any Multi-Drug Resistant Organisms: None Reported Past Surgical History: Orthopedic Surgery Additional Past Surgical History / Comment(s): rt wrist sx. bilat rotator cuff sx. colonoscopy Past Anesthesia/Blood Transfusion Reactions: Motion Sickness Smoking Status: Never smoker
[2023-11-27] MEDS: MAGNESIUM HYDROXIDE 2,400 MG/30 ML CUP PO PRN (20:55)
[2023-11-27] MEDS: clonazePAM 0.5 MG TAB PO SCH (21:18)
[2023-11-27] MEDS: traZODone HCL 50 MG TAB PO SCH (21:19)
--- NOTE | 2023-11-28 16:02 | P.PN ---
Progress Note - Text Progress Note Date: 11/28/23 Interval history: Patient was seen bedside and was directable and agreeable to speak with process description writer. Patient states that his mood is "great ". He says that he would like to be tapered off the Klonopin and was agreeable with being decreased on it tonight. He reports having trouble with sustaining sleep and discussed impact of Klonopin on this. Patient was agreeable with being increased on the trazodone. He states that otherwise he has noticed that he has been feeling better with the Abilify. He denies any other concerns, reports good energy and appetite. At this time patient denies any suicidal or homicidal ideations intent or plan. Denies any Auditory or visual hallucinations. Patient denies any side effects from the medications and has been compliant with meds. Mental status exam: General Appearance: Patient appears to be stated age is alert, directable, and cooperative. Behavior: No agitated behavior. Patient is calm and directable Speech: Patient's speech is fluent and nonpressured. Mood/Affect: Mood is improving mildly, affect is congruent and constricted. Suicidality/Homicidality: Patient denies having any suicidal or homicidal ideation intent or plan. Perceptions: Patient denies any auditory or visual hallucinations. Though content/process: There is no evidence of any delusional thought content and thought process is linear and goal-directed. Memory and concentration: AOX3, grossly intact for the purposes of this session Judgment and insight: improving mildly Assessment/Plan: Continue with current diagnosis. Patient continues to meet criteria for inpatient psychiatric admission for symptom stabilization and safety. Patient will be maintained on current psychotropic medication regimen. Increase trazodone to 100 mg at bedtime for sleep. Taper Klonopin to 0.25 mg at bedtime. Discussed other alternatives for sleep and mood augmentation including Seroquel. Monitor for medication compliance and for any psychotropic medication side effects. Will continue to monitor ongoing response to treatment. Encouraged participation in milieu.
[2023-11-28] MEDS: clonazePAM 0.5 MG TAB PO SCH (20:40)
[2023-11-28] MEDS: traZODone HCL 100 MG TAB PO SCH (20:41)
--- NOTE | 2023-11-29 13:11 | P.PN ---
Progress Note - Text Progress Note Date: 11/29/23 Interval history: Patient was seen bedside and was directable and agreeable to speak with typewriter mechanic. Patient states that his mood is "amazing". Patient is quite hyperverbal and pressured at times. He discusses how thankful he is for the care he is receiving here. He describes his traumatic experiences in the past and his struggle with substance use. He also discusses the circumstances leading to hospitalization including spending excessive amounts of money impulsively on donation taking to women on facebook who were scamming him. He also states that he was unable to reality test and was considering giving $15,000 over the phone to person scamming him pretending to be his bank. Patient states that he is better able to understand reality now but he displays tangential thinking and nearly has flight of ideas at times but is able to redirect himself. He reports sleeping well last night. He is agreeable with increasing Abilify. He denies any other concerns. He endorses good appetite and energy levels. At this time patient denies any suicidal or homicidal ideations intent or plan. Denies any Auditory or visual hallucinations. Patient denies any side effects from the medications and has been compliant with meds. Mental status exam: General Appearance: Patient appears to be stated age is alert, directable, and cooperative. Behavior: No agitated behavior. Patient is calm and directable Speech: Patient's speech is fluent, hyperverbal, and pressured at times Mood/Affect: Mood is elevated, affect is congruent Suicidality/Homicidality: Patient denies having any suicidal or homicidal ideation intent or plan. Perceptions: Patient denies any auditory or visual hallucinations. Though content/process: Tangential Memory and concentration: AOX3, grossly intact for the purposes of this session Judgment and insight: improving mildly Assessment/Plan: Continue with current diagnosis. Patient continues to meet criteria for inpatient psychiatric admission for symptom stabilization and safety. Patient will be maintained on current psychotropic medication regimen. Decrease trazodone to 50 mg at bedtime for sleep due to hypomania. Discussed other alternatives for sleep and mood augmentation including Seroquel. Increase Abilify to 15 mg for mood stabilization. Discontinue Klonopin. Monitor for medication compliance and for any psychotropic medication side effects. Will continue to monitor ongoing response to treatment. Encouraged participation in milieu.
[2023-11-29] MEDS: ARIPiprazole 10 MG TAB PO ONE (14:09)
[2023-11-29] MEDS: traZODone HCL 50 MG TAB PO SCH (21:36)
[2023-11-30 07:11] VITALS: RESP 16
[2023-11-30] MEDS: ARIPiprazole 5 MG TAB PO SCH (08:46)
--- NOTE | 2023-11-30 14:22 | P.PN ---
Progress Note - Text Progress Note Date: 11/27/23 Follow-up Mediation Review Chief Complaint: I am better. Subjective: I am feeling better. The patient noted that he is not having any experiences or thinking of being. He was less religiously preoccupied but still talked to some extent. He appeared more relaxed. His anxiety was better. He reported not side effects of medications. He has been compliant with medications. The patient has been attending the groups. The participation is good. The interaction with staff and peers is good. The patient is compliant with treatment recommendations. Leading questions: The patient admitted to Depression and Anxiety. Denied SI or HI. Denied symptoms consistent with psychosis Sleep and Appetite: Improving. Change in family/ living/job/financial/daily routine: No change. Change in medical condition: No change. Change in medications: No change. Side effects from Medications: None. . Objective- MSE: Alert and attentive. Orientation times three. Dressed and Groomed: Appropriately. Pleasant and cooperative. Psychomotor Activity: Normal. Speech: Normal in tone, quality, and quantity. Mood: Depressed and anxious. Affect: Consistent with mood. SI or HI: None. Perceptual disturbance: None. Thought Content: No paranoia or other delusional thinking noted. Thought Process: Normal. Cognition: Intact Judgment and Insight: Fair. AIMS: Normal. Labs: No new labs. Diagnosis: No change. Plan and Recommendations: Continue current Medications. Monitor MS and side effects of medications and adjust medications accordingly. Provide supportive psychotherapy. The patient provided psychoeducation and advised The patient provided Substance abuse counseling. Smoke cessation therapy. The patient to attend zhu activities. Medication Consent with explanation of risk/benefits and side effects: Explained and obtained.
--- NOTE | 2023-11-30 15:00 | P.PN ---
Progress Note - Text Progress Note Date: 11/30/23 Follow-up Mediation Review Chief Complaint: I am not feeling good.. Subjective: The patient noted that he has been feeling angry, restless, and anxious for last two days. He feels it is due to the changes in the medications over the weekend. The patient noted that his Abilify was increased to 15 mg. he feels that might have to do something with this. His meds were reviewed. His Abilify was bummed up to 15 mg and his Klonopin was discontinued. The patient has mild akathisia due to Abilify, probably slight worse with discontinuation of Klonopin. The patient noted that he was feeling pretty good prior to that. He denied having any unusual experiences. He is still talks about God but nothing unusual. No overt manic symptoms noted except mild grandiosity is noted.. He appeared tense and anxious. He reported side effects of medications, as stated above. He has been compliant with medications. The patient has been attending the groups. The participation is good. The interaction with staff and peers is good. The patient is compliant with treatment recommendations. Leading questions: The patient admitted to Depression and Anxiety. Denied SI or HI. Denied symptoms consistent with psychosis Sleep and Appetite: Improving. Change in family/ living/job/financial/daily routine: No change. Change in medical condition: No change. Change in medications: No change. Side effects from Medications: None. . Objective- MSE: Alert and attentive. Orientation times three. Dressed and Groomed: Appropriately. Pleasant and cooperative. Psychomotor Activity: Normal. Speech: Normal in tone, quality, and quantity. Mood: Depressed and anxious. Affect: Consistent with mood. SI or HI: None. Perceptual disturbance: None. Thought Content: No paranoia or other delusional thinking noted. Thought Process: Normal. Cognition: Intact Judgment and Insight: Fair. AIMS: Normal. Labs: No new labs. Diagnosis: No change. Plan and Recommendations: Continue current Medications. Decreased Abilify to 10 mg hs and added Klonoin 0.5 mg at bedtime. Monitor MS and side effects of medications and adjust medications accordingly. Provide supportive psychotherapy. The patient provided psychoeducation and advised The patient provided Substance abuse counseling. Smoke cessation therapy. The patient to attend zhu activities. Medication Consent with explanation of risk/benefits and side effects: Explained and obtained.
[2023-11-30] MEDS: clonazePAM 0.5 MG TAB PO SCH (20:46)
[2023-12-01] MEDS: ARIPiprazole 10 MG TAB PO SCH (09:21)
--- NOTE | 2023-12-01 15:33 | P.PN ---
Progress Note - Text Progress Note Date: 12/01/23 .Follow-up Mediation Review Chief Complaint: I am feeling very good mentally. Subjective: The patient noted he has been feeling very good mentally but physically is a different matter.He c/o constipation. He has been taking Milk of Magnesia, which is causing loose stools. Suggested Colace. The patient agreed and consented. He has had no angry feeling, restlessness, and anxiety since yesterday. He has had no strange thoughts. he does not feel that mind is playing tricks with him. He is not showing any symptoms of selin. Overall, the patient is significantly improved since the time of the admission. He reported side effects of medications, as stated above. He has been compliant with medications. The patient has been attending the groups. The participation is good. The interaction with staff and peers is good. The patient is compliant with treatment recommendations. Leading questions: The patient admitted to Depression and Anxiety. Denied SI or HI. Denied symptoms consistent with psychosis Sleep and Appetite: Good. Change in family/ living/job/financial/daily routine: No change. Change in medical condition: No change. Change in medications: No change. Side effects from Medications: None. . Objective- MSE: Alert and attentive. Orientation times three. Dressed and Groomed: Appropriately. Pleasant and cooperative. Psychomotor Activity: Normal. Speech: Normal in tone, quality, and quantity. Mood: I am fine. Affect: Consistent with mood. SI or HI: None. Perceptual disturbance: None. Thought Content: No paranoia or other delusional thinking noted. Thought Process: Normal. Cognition: Intact Judgment and Insight: Fair. AIMS: Normal. Labs: No new labs. Diagnosis: No change. Plan and Recommendations: Continue current Medications. Klonopin 0.25 mg at bedtime. Monitor MS and side effects of medications and adjust medications accordingly. Provide supportive psychotherapy. The patient provided psychoeducation and advised The patient provided Substance abuse counseling. Smoke cessation therapy. The patient to attend zhu activities. Medication Consent with explanation of risk/benefits and side effects: Explained and obtained.
[2023-12-01] MEDS: DOCUSATE 100 MG CAP PO PRN (18:00)
--- NOTE | 2023-12-01 18:22 | P.PN ---
Progress Note - Text Progress Note Date: 12/01/23 - Chief Complaint Anxious - History of Present Illness This is a 58-year-old patient, being followed by Dr. Phelps. Takes medication for hypothyroid, hypertension, also anxiety depression. Patient made some suicidal comments at his primary doctor's office and apparently had attempted suicide about a month ago. He was sent down by the EMS. Per the EMS report patient came to the doctor's office meeting acting manic making suicidal remarks at times. He had been apparently lowering his medications dose on his own. And patient is willing to go to the hospital. Patient has not been sleeping well. Last 6 months has lost about 52 pounds. He does have a lot of hiking with backpack. Anxious depressed. Also having tremors. Nurse informed me afterward patient does takeKratum. Sitting at the edge of the bed. Patient does state he has some scratches on his body especially the limbs from hiking November 26: Patient feeling better. Less jittery. Less anxious. He does take kratom, maybe about once a week in place of Xanax. Patient's thyroid levels came back normal. Results discussed with the patient. Sleeping better November 30: Patient complaining of slight discomfort some pain in the right toe on the lateral aspect. Had a hangnail repaired. Localized tenderness. I have the patient soak in warm water twice a day. Will give a short course of Keflex-5 days. Active Medications Acetaminophen (Acetaminophen Tab 325 Mg Tab) 650 mg PO Q4HR PRN PRN Reason: Mild Pain (Scale 1 to 3) Al Hydroxide/Mg Hydroxide (Mag Hydrox/Al Hydrox/Simeth 355 Ml Bottle) 30 ml PO Q4HR PRN PRN Reason: GI Upset Aripiprazole (Aripiprazole 10 Mg Tab) 10 mg PO DAILY [facility] Last Admin: 12/01/23 09:21 Dose: 10 mg Clonazepam (Clonazepam 0.5 Mg Tab) 0.25 mg PO HS [facility] Docusate Sodium (Docusate 100 Mg Cap) 100 mg PO DAILY PRN PRN Reason: Constipation Last Admin: 12/01/23 18:00 Dose: 100 mg Haloperidol (Haloperidol 5 Mg Tab) 5 mg PO Q6HR PRN PRN Reason: Agitation Haloperidol Lactate (Haloperidol Lactate 5 Mg/Ml 1 Ml Vial) 5 mg IM Q6HR PRN PRN Reason: Severe Agitation Ibuprofen (Ibuprofen 600 Mg Tab) 600 mg PO Q6HR PRN PRN Reason: Moderate Pain (Scale 4 to 6) Last Admin: 11/28/23 02:38 Dose: 600 mg Levothyroxine Sodium (Levothyroxine 75 Mcg Tab) 75 mcg PO DAILY@0630 [facility] Last Admin: 12/01/23 06:55 Dose: 75 mcg Lorazepam (Lorazepam 1 Mg Tab) 1 mg PO Q6HR PRN PRN Reason: Anxiety Last Admin: 11/30/23 11:46 Dose: 1 mg Lorazepam (Lorazepam 2 Mg/Ml Inj) 1 mg IM Q6HR PRN PRN Reason: Severe Agitation Magnesium Hydroxide (Magnesium Hydroxide 2,400 Mg/30 Ml Cup) 2,400 mg PO DAILY PRN PRN Reason: Constipation Last Admin: 11/29/23 10:11 Dose: 2,400 mg Trazodone HCl (Trazodone Hcl 50 Mg Tab) 50 mg PO [facility] Last Admin: 11/30/23 21:16 Dose: 50 mg Valsartan (Valsartan 80 Mg Tab) 80 mg PO [facility] Last Admin: 11/30/23 21:16 Dose: 80 mg Social history: Does not smoke. Stopping alcohol 28 years ago. Stop doing cocaine over 35 years ago. 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 Lives with family Physical examination: VITAL SIGNS: 97.4, 85, 16, 105/73, 97% room air GENERAL: Comfortable EYES: Pupils equal. Conjunctiva antwon l. HEENT: External appearance of nose and ears normal, oral cavity grossly normal. NECK: JVD not raised; masses not palpable. HEART: First and second heart sounds are normal; no edema. LUNGS: Respiratory rate normal; clear to auscultation. ABDOMEN: Soft, nontender, liver spleen not palpable, no masses palpable. PSYCH: [Alert and oriented x3; mood and affect less anxious Extremity: Left big toe at the lateral nail soft tissue junction. Localized tenderness. Slight redness INVESTIGATIONS, reviewed in the clinical context: November 26: White count 5.8 hemoglobin 13.8 platelets 246 potassium 4.3 creatinine 0.96 TSH 2.5 LDL 103.2 UA small blood. Calcium oxalate crystals. Rare Urine drug screen benzodiazepine COVID-19 not detected Assessment plan: -Essential hypertension Diovan 80 mg nightly -Hypothyroid, TSH within normal range. On Synthroid -Insomnia, multifactorial contribution of possible over replaced with thyroid and severe anxiety -Bipolar 2 mixed phase Medications per psychiatry -Mild cellulitis right big toe lateral aspect at the nail and skin junction Keflex 1 mg 3 times daily for 5 days. Soak in warm water twice daily Thank you Dr. Gr Past Medical History Past Medical History: GERD/Reflux, Hypertension, Thyroid Disorder History of Any Multi-Drug Resistant Organisms: None Reported Past Surgical History: Orthopedic Surgery Additional Past Surgical History / Comment(s): rt wrist sx. bilat rotator cuff sx. colonoscopy Past Anesthesia/Blood Transfusion Reactions: Motion Sickness Smoking Status: Never smoker
[2023-12-01] MEDS: CEPHALEXIN 500 MG CAP PO SCH (19:07)
[2023-12-01] MEDS: clonazePAM 0.5 MG TAB PO SCH (20:49)
--- NOTE | 2023-12-02 11:21 | P.PN ---
Progress Note - Text Progress Note Date: 12/02/23 Follow-up Mediation Review Chief Complaint: I am feeling fine. Subjective: The patient noted he has been feeling very good. His constipation also responded to Colace. The patient noted that he is not having any depressive symptomatology. Overall, he feels much better and now making plans to improve his interaction with friends and family. He wants to work on himself. too. He has good insight in to his illness. He reported side effects of medications, as stated above. He has been compliant with medications. The patient has been attending the groups. The participation is good. The interaction with staff and peers is good. The patient is compliant with treatment recommendations. Leading questions: The patient admitted to Depression and Anxiety. Denied SI or HI. Denied symptoms consistent with psychosis Sleep and Appetite: Good. Change in family/ living/job/financial/daily routine: No change. Change in medical condition: No change. Change in medications: No change. Side effects from Medications: None. . Objective- MSE: Alert and attentive. Orientation times three. Dressed and Groomed: Appropriately. Pleasant and cooperative. Psychomotor Activity: Normal. Speech: Normal in tone, quality, and quantity. Mood: I am fine. Affect: Consistent with mood. SI or HI: None. Perceptual disturbance: None. Thought Content: No paranoia or other delusional thinking noted. Thought Process: Normal. Cognition: Intact Judgment and Insight: Fair. AIMS: Normal. Labs: No new labs. Diagnosis: No change. Plan and Recommendations: Continue current Medications. Monitor MS and side effects of medications and adjust medications accordingly. Provide supportive psychotherapy. The patient provided psychoeducation and advised The patient provided Substance abuse counseling. Smoke cessation therapy. The patient to attend zhu activities. Medication Consent with explanation of risk/benefits and side effects: Explained and obtained.
[2023-12-02] MEDS: ACETAMINOPHEN TAB 325 MG TAB PO PRN (16:36)
[2023-12-03 06:21] VITALS: BP 100/68; PULSE 76; TEMP 98.1
--- NOTE | 2023-12-03 13:17 | P.DS ---
Providers Date of admission: 11/25/23 21:06 Expected date of discharge: 12/03/23 Attending physician: Alcides Gr MD Consults: 11/25/23 21:19 Consult Physician Routine Consulting Provider: Arthur Milan Consult Reason/Comments: H & P Do you want consulting provider notified?: Yes Primary care physician: Murphy Phelps - Discharge Diagnosis(es) (1) Bipolar I disorder with selin Current Visit: Yes Status: Acute Priority: High Hospital Course: Discharge Summary HPI: dentifying Data: Mr. Barrios is 58 years old, , white male, who lives in [place], [place] with his . Chief Complaint: Anxiety. History of Psychiatric Illness- The patient noted that his anxiety started 2 months ago this time. He has suffered from anxiety all his life. The patient noted that his anxiety got worse due to side effects of anxiety, also it was not working. His anxiety symptoms of inability to focus, nervousness, distractibility, doing multiple projects, inability to finish projects, inability to sleep at night, tremulousness, not feeling myself. He also felt depressed along with anxiety. His depressive symptomatology consisted of crying spells, sadness, loss of appetite, guilt feeling, feeling worthless, hopeless, felt burden to the family, and thought that, I would be better off . He did not have active thoughts of suicide or plans. The patient noted that he has felt presence of God. He feels that he has been forgiven. He further mentioned that he walked in to the [place] and saw lightening bolts all around him. He was camping by himself. The patient went on Facebook but he did not know that he had signed up for it. He posted a lot about nature, his picture with God in everything. He stated that he became friends with the females on Facebook. He thinks they like him but he feels guilty about this because he is man. He went to his primary care physician for a referral but the PCP asked him to go to ER. The patient came to ER and told them that he attempted suicide a month ago by taking Xanax, Muscle relaxant, Trazodone, Kratom and Klonopin. The patient first sought psychiatric treatment in 2005 after his brother . He went for out-pt treatment. He was prescribed other medications but he does not remember the medications. He continued treatment for one and half year and then stopped. He has had out-pt treatment off and on since. He resumed treatment 4-[address] Gerber. He has been prescribed Prozac since then. He has never had in-pt psychiatric treatment in the past. The patient noted that one time he thought of running his car in to a pole but did not do it. He has no other history of SI or HI in the past. Past Psychiatric History: As stated above. Past Medication History: As stated above. Leading questions: The patient admitted to Depression, Anxiety and being hyper talkative. Denied SI or HI. Denied symptoms consistent with psychosis Drugs and alcohol history: Cocaine abuse for 3-4 years around age early 20s. Alcohol abuse 10 years from early 20s to early 30s. He denied abuse of any other drugs. Marijuana makes him paranoid. Tobacco use: None Past Medical history: HTN Hospital Course: After admission, the patient was involved in pharmacotherapy, zhu milieu, and individual psychodynamic psychotherapy. The patient was started Abilify and Trazodone. The dose was titrated to obtain the desire effects. The patient tolerated medications well without any side effects. The patient was also involved in zhu activities. The patient attended the groups and participated well. The patient interacted with peers and staff well. The patient slowly started showing improvement. The hospital course was uneventful. The patient symptoms of depression, suicidal and homicidal ideations abated. The psychosis improved. The patient was stable to be discharged to out-patient care. The patient did not have any guns or weapons in possession at home. MSE: Alert and attentive. Orientation times three Dressed and Groomed: Appropriately. Pleasant and cooperative. Psychomotor Activity: Normal. Speech: Normal in tone, quality, and hyperverbal Mood: Anxious and depressed Affect: Labile SI or HI: None. Perceptual disturbance: None. Thought Content: Oriental Orthodox preoccupation Thought Process: Normal. Cognition: Intact Judgment and Insight: Good AIMS: Normal Labs: Available labs reviewed. Diagnosis: Bipolar II- mixed phase Plan: The patient to be discharged today. The patient has attained good improvement since admission. He is stable to be followed as an outpatient. The patient is not suicidal or Homicidal. He does not pose any harm to self or others. The patient remains at a greater risk of self-harm or harm to others than general population on a chronic basis due to psychiatric illness and substance abuse. The patient will continue taking following medication post discharge. The importance of medication compliance and maintaining regular appointments at psychiatric out-pt and PCP clinic was explained and encouraged. The understood and agreed with the recommendations. platform worker to arrange for and conduct family meeting to ensure safety upon discharge and answer any questions. The social service assistant to arrange for patients follow-up appointments at [facility] for psychiatric care along with follow-up with PCP. The patient provided psychoeducation. Advised to call 911 or go to nearest ED or call this hospital in case of acute worsening of symptomatology, severe side effects or having suicidal, homicidal thoughts and feeling unsafe at home. Patient Condition at Discharge: Stable Plan - Discharge Summary Discharge Rx Participant: No New Discharge Prescriptions: New ARIPiprazole [Abilify] 10 mg PO DAILY 15 Days #15 tab Cephalexin [Keflex] 500 mg PO TID 7 Days #21 cap Continue Levothyroxine Sodium [Synthroid] 75 mcg PO DAILY Valsartan [Diovan] 80 mg PO HS traZODone HCL [Desyrel] 25 mg PO HS 15 Days #15 tab Discontinued clonazePAM [KlonoPIN] 1 mg PO HS Ginseng 100 mg PO HS Sertraline [Zoloft] 50 mg PO DAILY Garlic Extract [Garlic] 400 mg PO HS Discharge Medication List Levothyroxine Sodium [Synthroid] 75 mcg PO DAILY 03/15/17 [History] Valsartan [Diovan] 80 mg PO HS 11/25/23 [History] ARIPiprazole [Abilify] 10 mg PO DAILY 15 Days #15 tab 12/03/23 [Rx] Cephalexin [Keflex] 500 mg PO TID 7 Days #21 cap 12/03/23 [Rx] traZODone HCL [Desyrel] 25 mg PO HS 15 Days #15 tab 12/03/23 [Rx] Follow up Appointment(s)/Referral(s): Pathology, Speech [Other] - 1 Week (Modified Barium Swallow Study will allow us to visualize cervical spine and r/o swallow disfunction.) [facility] [Outside] - 12/04/23 8:00 am (12/03 at 8am with Bharat Rjoas II 12/13 at 1:30pm with Dr. Yip) Murphy Phelps DO [Primary Care Provider] - 1-2 days Patient Instructions/Handouts: How to Stop Smoking (DC), Bipolar Disorder (DC) Activity/Diet/Wound Care/Special Instructions: DO NOT USE KRATOM. Avoid the use of street drugs and alcohol. Take all medications as prescribed. When you are in need of refills on your medications, please contact your outpatient medical provider and/or outpatient psychiatrist. Please go to your scheduled outpatient appointments for aftercare treatment. If symptoms return or become worse, call the crisis line at or and/or visit the nearest emergency room for assistance. National Suicide and Crisis Lifeline - call or text 150. Discharge Disposition: HOME SELF-CARE
== END 2023-12-03 14:40 | disposition home or self-care (01) | DRG 885 ==
LOC: EC 12:42 → 3MHU 21:06
PROVIDERS: ADMIT Psychiatry & Neurology Psychiatry; ATTEND Psychiatry & Neurology Psychiatry
DX: F31.10 Bipolar disorder, current episode manic without psychotic features, unspecified (principal); R45.851 Suicidal ideations; K59.00 Constipation, unspecified; I10 Essential (primary) hypertension; F10.11 Alcohol abuse, in remission; F14.11 Cocaine abuse, in remission; E03.9 Hypothyroidism, unspecified; F41.9 Anxiety disorder, unspecified; L03.031 Cellulitis of right toe; G47.00 Insomnia, unspecified; K21.9 Gastro-esophageal reflux disease without esophagitis; Z71.3 Dietary counseling and surveillance; Z11.52 Encounter for screening for COVID-19; Z91.51 Personal history of suicidal behavior; Z79.899 Other long term (current) drug therapy; Z79.890 Hormone replacement therapy; Z91.128 Patient's intentional underdosing of medication regimen for other reason; Z71.89 Other specified counseling
CPT/HCPCS: 80053; 80061; 80306; 81001; 82075; 82248; 83036; 84443; 85025; 87635; 93005; 99285

== ENCOUNTER → 2024-01-01 | Outpatient (CLI) | payer BC ==
--- NOTE | 2024-01-01 12:22 | FL ---
Exam Date: 01/01/2024 11:19 AM. Modified barium swallow for dysphagia. Consistencies administered: Various consistency of barium. Fluoro time: 59 sec No images were sent to PACS. Please see speech pathology report. DAP: Not reported mGym2 Gycm2 DYSPHAGIA, THIN AND PUDDING USED, FLUORO TIME: 59 SECONDS, DONE BY KALEY AND DAYANNA
== END | disposition home or self-care (01) ==
LOC: RADFLMAIN 10:54
PROVIDERS: ATTEND Otolaryngology
DX: R13.13 Dysphagia, pharyngeal phase (principal)
CPT/HCPCS: 74230